=== PATIENT | male | born 1940 | race Caucasian/White ===

== ENCOUNTER 2016-09-26 09:41 | Inpatient (IN) | payer OTHER ==
--- NOTE | 2016-09-24 17:35 | GHP ---
[f rep st] HISTORY AND PHYSICAL DATE OF ADMISSION: 09/26/2016 HISTORY OF PRESENT ILLNESS: The patient is referred from Dr. Shi for evaluation of right groin painful mass. The patient is a 75-year-old male, who has a history of open left inguinal hernia repa ir and he is having an enlarging bothersome mass on his right inguinal region. PAST SURGICAL HISTORY: Includes open left inguinal hernia repair. PAST MEDICAL HISTORY: He has diabetes, mild asthma, dementia, depression. MEDICATIONS: Stool softeners and fluticasone. REVIEW OF SYSTEMS: Negative 10 point review of systems. PHYSICAL EXAM: GENERAL: Patient is a 75-year-old male, in no apparent distress. HEAD AND NECK: No rmocephalic, atraumatic. CHEST: CTA bilaterally. HEART: Regular rate. ABDOMEN: There is a non r educible right groin mass as well as illuminating scrotal mass. EXTREMITIES: No lower extremity cyndi ma. IMPRESSION: A 75-year-old male with right inguinal hernia and likely hydrocele. RECOMMENDATION: Open right inguinal hernia repair and hydrocele repair with mesh. Risks including r ecurrence, infection, nerve injury, scrotal swelling, was discussed the patient in detail. The patie nt elects to proceed with scheduling for September 26, 2016. The patient will most likely need observat ion status due to his dementia and he has no home care. /[id number]/MODL
[~2016-09-26 09:41] MED LIST: BUPIVACAINE 0.5% 30 ML SDV ONE; DEXAMETHASONE 4 MG/ML VIAL ONE; LIDOCAINE 2% 100 MG/5 ML SYR IVP ONE; ONDANSETRON 4 MG/2 ML VIAL ONE; PROPOFOL 200 MG/20 ML VIAL ONE; SKIN ADHESIVE (DERMABOND) 1 EACH TP ONE; ceFAZolin 2 GM/DEXTROSE 100 ML IV ONE; fentaNYL 100 MCG/2 ML INJ ONE
[2016-09-26] MEDS ORDERED: CEFAZOLIN 2 GM/DEXTROSE/100 ML BAG IV ONE (10:20)
[2016-09-26] MEDS ORDERED: LIDOCAINE 1% 5 ML SDV ONE (10:20)
--- NOTE | 2016-09-26 10:55 | CPEKG ---
Heart Rate: 77 RR Interval: 779 P-R Interval: 184 QRSD Interval: 86 QT Interval: 388 QTC Interval: 440 P [place]: 67 QRS [place]: 39 T Wave [place]: 67 EKG Severity - NORMAL ECG - EKG Impression: SINUS RHYTHM Electronically Signed By: Kelby Rodriguez 26-Sep-2016 12:48:58
[2016-09-26] MEDS ORDERED: ROCURONIUM 50 MG/5 ML VIAL ONE (11:01)
[2016-09-26] MEDS ORDERED: SUGAMMADEX SODIUM 200 MG/2 ML VIAL IVP ONE (12:14)
[2016-09-26] MEDS ORDERED: ACETAMINOPHEN 325 MG TAB PO PRN (12:47)
[2016-09-26] MEDS ORDERED: HYDROCODONE/APAP 5/325 TAB PO PRN (12:47)
--- NOTE | 2016-09-26 12:52 | POSTOPPROG ---
Post Op Note Date of Operation: 09/26/16 Surgeon: Osei hPillips Sole Leveling Machine Operator: Flaquito Weiner Anesthesiologist: Dr Le Anesthesia: GET(General Endotracheal) Pre-op Diagnosis: right inguinal hernia Post-op Diagnosis: large right inguinal hernia Indication: pain Procedure: open r inguinal hernia repair with mesh Findings: large hernia Inf/Abcess present in the surg proc area at time of surgery?: No Depth: Deep Incisional (Fascial) EBL: Minimal Drains: Desean Cho
[2016-09-26] MEDS ORDERED: D5W 1/2 NS W/ 20 KCl/L 1,000 ML IV SCH (13:00)
[2016-09-26] MEDS: HYDROmorphONE/DILAUDID 1 MG/ML SYR IVP PRN ×2 (14:47→23:27)
[2016-09-26] MEDS ORDERED: LORazepam 2 MG/ML INJ IV ONE (19:30)
[2016-09-26] MEDS ORDERED: LORazepam 2 MG/ML INJ IVP PRN (19:40)
[2016-09-26] MEDS ORDERED: LORazepam 2 MG/ML INJ ONE (20:12)
[2016-09-26] MEDS ORDERED: HALOPERIDOL LACT 5 MG/ML INJ IM PRN (20:17)
[2016-09-26] MEDS ORDERED: LORazepam 2 MG/ML INJ IM ONE (21:00)
--- NOTE | 2016-09-27 06:23 | SOAPPROG ---
SOAP Progress Note Assessment/Plan: Assessment: draft note, will see pt this AM 75yo male s/p open right inguinal hernia repair. POD 1. Dementia, Diabetes. was agitated last evening, pulled out IV line. Doing much better today per nursing. PE slightly confused Abdomen right lower quadrant bandage dry, TRUE drain in place, abdomen soft, nondistended. Plan: Ativan IM and haldol ordered if agitation worsens today. May need medicine consult to assist in care but will see how day progresses. will need SNF as remarkably patient lived alone prior to this admission and will not be able to care for himself. Case management already aware. Family (nieces) aware, discussed last evening. 09/27/16 06:19 09/27/16 21:56 Objective: Vital Signs Temp Pulse Resp BP Pulse Ox 36.7 C 70 16 102/65 96 09/27/16 04:00 09/27/16 04:00 09/27/16 04:00 09/27/16 04:00 09/27/16 04:00 09/26/16 09/27/16 09/28/16 05:59 05:59 05:59 Intake Total 1215 Output Total 200 Balance 1015 ICD10 Worksheet Patient Problems: Problems Problem Status Diagnosed Hernia Acute - ICD10 Problem Qualifiers (1) Hernia
--- NOTE | 2016-09-28 06:01 | SOAPPROG ---
SOAP Progress Note Assessment/Plan: Assessment: draft note, will see pt this AM 75yo male s/p open right inguinal hernia repair. POD 1. Dementia, Diabetes. was agitated last evening, pulled out IV line. Doing much better today per nursing. PE slightly confused Abdomen right lower quadrant bandage dry, TRUE drain in place, abdomen soft, nondistended. Plan: Ativan IM and haldol ordered if agitation worsens today. May need medicine consult to assist in care but will see how day progresses. will need SNF as remarkably patient lived alone prior to this admission and will not be able to care for himself. Case management already aware. Family (nieces) aware, discussed last evening. 09/27/16 06:19 09/27/16 21:56 09/28/16 05:59 less confused, tolerating diet, tolerating pain. PE slightly confused but oriented to person, place appears comfortable abdomen right lower quadrant bandage dry, TRUE in place (165 out yesterday) abdomen is soft, no signs of tenderness to palpation Plan will need to stay given size of hernia resulting in significant pain, plus confusion while improving patient not safe to care for himself. 09/28/16 09:47 Objective: Vital Signs Temp Pulse Resp BP Pulse Ox 36.6 C 92 14 120/69 93 09/28/16 04:00 09/28/16 04:00 09/28/16 04:00 09/28/16 04:00 09/28/16 04:00 09/26/16 09/27/16 09/28/16 05:59 05:59 05:59 Intake Total 1215 Output Total 200 145 Balance 1015 -145 ICD10 Worksheet Patient Problems: Problems Problem Status Diagnosed Hernia Acute - ICD10 Problem Qualifiers (1) Hernia
[2016-09-28] MEDS: ENOXAPARIN 40 MG/0.4 ML SYR SC SCH (16:21)
--- NOTE | 2016-09-28 17:27 | GOP ---
[f rep st] OPERATIVE REPORT DATE OF OPERATION: 09/26/2016 SURGEON: Osei Phillips MD PREOPERATIVE DIAGNOSIS: Right inguinal hernia and possible hydrocele. POSTOPERATIVE DIAGNOSIS: Incarcerated, sliding right inguinal hernia. PROCEDURE PERFORMED: Open repair incarcerated, sliding right inguinal hernia ASST: RHONDA Weiner FINDINGS: Patient was found to have a large incarcerated, sliding right inguinal hernia containing a portion of the colon and the appendix, which were quite viable. DESCRIPTION OF PROCEDURE: Patient taken to the operating room, where he received satisfactory general endotracheal anesthesia by Dr. Le. He was placed in the supine position, and prepped and draped in the usual sterile fashion. An oblique incision was made in the right midline. Dissection was carried down through the subcutaneous tissue. Hemostasis was obtained with electrocautery and 3-0 Vicryl ties. External oblique was opened. A large hernia sac extending down into the scrotum was dissected free from the scrotal structures. The cord was mobilized and encircled with a vessel loop and the sac was dissected free from the layers of the scrotum until eventually the contents were partially reduced. The sac was completely freed up. It was then opened and evaluated. The sliding component was present. This was freed up until the right colon and appendix could be reduced. The sac was then multiply ligated with 2-0 Vicryl ligatures. Excess sac was amputated and the stump was seen to retract below the internal ring. The floor of the canal was further imbricated with running 2 -0 Vicryl suture and a ProGrip polyester mesh Covidien patch was placed over the inguinal floor. The patch was slit laterally to pass the limb around the cord structures. It was then anchored in place with interrupted 0 Surgilon sutures, securing it to the internal oblique fascia, Tim's ligament, and the shelving edge of the inguinal ligament. Cord and nerve were replaced in anatomic position. The external oblique was closed with a running 2-0 Vicryl, subcu with 3-0 Vicryl , and the skin with skin taurus. He tolerated the procedure quite well, was taken to recovery room in good condition. There were no complications. /[id number]/MODL MTDD
--- NOTE | 2016-09-29 09:26 | SOAPPROG ---
SOAP Progress Note Assessment/Plan: Assessment: draft note, will see pt this AM 75yo male s/p open right inguinal hernia repair. POD 1. Dementia, Diabetes. was agitated last evening, pulled out IV line. Doing much better today per nursing. PE slightly confused Abdomen right lower quadrant bandage dry, TRUE drain in place, abdomen soft, nondistended. Plan: Ativan IM and haldol ordered if agitation worsens today. May need medicine consult to assist in care but will see how day progresses. will need SNF as remarkably patient lived alone prior to this admission and will not be able to care for himself. Case management already aware. Family (nieces) aware, discussed last evening. 09/27/16 06:19 09/27/16 21:56 09/28/16 05:59 less confused, tolerating diet, tolerating pain. PE slightly confused but oriented to person, place appears comfortable abdomen right lower quadrant bandage dry, TRUE in place (165 out yesterday) abdomen is soft, no signs of tenderness to palpation Plan will need to stay given size of hernia resulting in significant pain, plus confusion while improving patient not safe to care for himself. 09/28/16 09:47 09/29/16 09:[address] Phillips PE abdomen TRUE in place, soft, bandage dry Plan D/C to SNF/rehab if placement available Objective: Vital Signs Temp Pulse Resp BP Pulse Ox 37.0 C 95 16 93/59 L 92 09/29/16 08:00 09/29/16 08:00 09/29/16 08:00 09/29/16 08:00 09/29/16 08:00 09/28/16 09/29/16 09/30/16 05:59 05:59 05:59 Output Total 145 55 Balance -145 -55 ICD10 Worksheet Patient Problems: Problems Problem Status Diagnosed Hernia Acute - ICD10 Problem Qualifiers (1) Hernia
--- NOTE | 2016-09-29 09:30 | PDIAF ---
- Diagnosis Diagnosis: s/p hernia surgery Code Status: Full Code - Medication Management Discharge Medications: Medications to Continue on Transfer Fluticasone Nasal [Flonase Nasal [place]] 2 sprays [place] DAILY PRN 11/06/11 [ Last Taken 09/26/16 09:00] Discharge Medications: Refer to the Discharge Home Medication list for PRN reason. - Orders Services needed: Registered Nurse, Physical Therapy, Occupational Therapy Diet Recommendation: no restrictions on diet Diet Texture: Regular Texture Diet Wound Care Instructions: ok to shower/bath over taurus, no need to cover taurus with bandage Sutures/Taurus Site: around Oct 10-, can be done in rehab or at Dr Phillips office - Follow Up Care Current Providers and Referrals: Raza Shi MD [Primary Care Provider] -
[2016-09-29] MEDS: ENOXAPARIN 40 MG/0.4 ML SYR SC SCH (10:01)
--- NOTE | 2016-09-29 12:32 | SOAPPROG ---
SOAP Progress Note Assessment/Plan: Assessment: draft note, will see pt this AM 75yo male s/p open right inguinal hernia repair. POD 1. Dementia, Diabetes. was agitated last evening, pulled out IV line. Doing much better today per nursing. PE slightly confused Abdomen right lower quadrant bandage dry, TRUE drain in place, abdomen soft, nondistended. Plan: Ativan IM and haldol ordered if agitation worsens today. May need medicine consult to assist in care but will see how day progresses. will need SNF as remarkably patient lived alone prior to this admission and will not be able to care for himself. Case management already aware. Family (nieces) aware, discussed last evening. 09/27/16 06:19 09/27/16 21:56 09/28/16 05:59 less confused, tolerating diet, tolerating pain. PE slightly confused but oriented to person, place appears comfortable abdomen right lower quadrant bandage dry, TRUE in place (165 out yesterday) abdomen is soft, no signs of tenderness to palpation Plan will need to stay given size of hernia resulting in significant pain, plus confusion while improving patient not safe to care for himself. 09/28/16 09:47 09/29/16 09:[address] Phillips PE abdomen TRUE in place, soft, bandage dry Plan D/C to SNF/rehab if placement available 09/29/16 12:32 await one more day for placement given pain control issues. Objective: Vital Signs Temp Pulse Resp BP Pulse Ox 36.8 C 88 18 116/65 94 09/29/16 12:00 09/29/16 12:00 09/29/16 12:00 09/29/16 12:00 09/29/16 12:00 09/28/16 09/29/16 09/30/16 05:59 05:59 05:59 Output Total 145 55 Balance -145 -55 ICD10 Worksheet Patient Problems: Problems Problem Status Diagnosed Hernia Acute - ICD10 Problem Qualifiers (1) Hernia
[2016-09-30 02:45] VITALS: RESP 18
[2016-09-30] MEDS: ENOXAPARIN 40 MG/0.4 ML SYR SC SCH (08:55)
[2016-09-30 12:12] VITALS: BP 99/62; PULSE 94; TEMP 99.2; O2SAT 91
--- NOTE | 2016-09-30 13:48 | SOAPPROG ---
SOAP Progress Note Assessment/Plan: Assessment/Plan: 75 Y M s/p open incarcerated hernia repair. TRUE removed. Wound cdi. No erythema. Pain controlled. D/c to SNF today. 09/30/16 13:45 Subjective: Denies pain today. Isn't walking well on his own bc "it's hard." On interrogation he endorses weakness and some pain. Eating but low appetite. Objective: Vital Signs Temp Pulse Resp BP Pulse Ox 37.3 C 94 18 99/62 L 91 L 09/30/16 12:05 09/30/16 12:05 09/30/16 12:05 09/30/16 12:05 09/30/16 12:05 09/29/16 09/30/16 10/01/16 05:59 05:59 05:59 Intake Total 225 Output Total 55 Balance -55 225 alert, hesitant to cooperate with exam mmm, kera complexion no wob rrr abd soft. inc cdi. drain site clean. has taurus. gen minimal, but present, scrotal swelling ICD10 Worksheet Patient Problems: Problems Problem Status Diagnosed Hernia Acute
--- NOTE | 2016-09-30 14:17 | PDIAF ---
- Diagnosis Diagnosis: s/p hernia surgery Code Status: Full Code - Medication Management Discharge Medications: Medications to Continue on Transfer Fluticasone Nasal [Flonase Nasal [place]] 2 sprays [place] DAILY PRN 11/06/11 [ Last Taken 09/26/16 09:00] Acetaminophen [Tylenol 325mg (*)] 325 - 650 mg PO Q4HRS PRN #0 tab 09/29/16 [ Last Taken Unknown] Discharge Medications: Refer to the Discharge Home Medication list for PRN reason. PICC Care - Routine: N/A - Orders Services needed: Registered Nurse, Physical Therapy, Occupational Therapy Diet Recommendation: no restrictions on diet Diet Texture: Regular Texture Diet Wound Care Instructions: ok to shower/bath over taurus, no need to cover taurus with bandage Sutures/Taurus Site: around Oct 10-, can be done in rehab or at Dr Phillips office - Follow Up Care Current Providers and Referrals: Raza Shi MD [Primary Care Provider] - Osei Phillips MD [Medical Doctor] - (10-14 days)
--- NOTE | 2016-09-30 15:49 | GDS ---
[f rep st] DISCHARGE SUMMARY DISCHARGE DIAGNOSIS: Incarcerated sliding right inguinal hernia. OTHER DIAGNOSES: Diabetes, dementia, asthma, depression, and history of left inguinal hernia repair. PROCEDURES: Open repair of incarcerated sliding right inguinal hernia with mesh by Dr. Osei Phillips. INTRAOPERATIVE FINDINGS: The patient was found to have a large incarcerated sliding right inguinal hernia containing a portion of the colon and the appendix , which were viable. HOSPITAL COURSE: The patient is a 75-year-old male, who was referred to us by his primary care physician for evaluation of an increasingly painful right groin mass. He was found to have an incarcerated hernia. He was brought to the operating room and underwent hernia repair. He did have colon and appendix involved in his hernia sac, and these were viable. He did not require any resection. A mesh was placed, and a Desean-Cho drain was placed as well. The patient's postoperative course was mildly complicated by some increased confusion, as well as some pain control issues. His confusion did improve but did not entirely go away, which appears to be his baseline upon speaking to relatives. His pain improved as well, and he did not require pain medicines during the last 2 days of his hospital stay. Case management was consulted and his family was aware of his situation. DISCHARGE INSTRUCTIONS: Ultimately, he was discharged to a subacute nursing facility in stable condition. He was given instructions to follow up with us in 2 weeks for removal of the taurus and routine follow-up care. His Desean- Cho drain was removed prior to him leaving the hospital. There was some discussion about eventually arranging long-term care, as the patient was living independently but perhaps not safely. /[id number]/MODL MTDD
== END 2016-09-30 16:00 | DRG 352 ==
LOC: F3N 09:41 → F3E 13:47 → OBSVTOIN 09-27 06:19
PROVIDERS: ADMIT Surgery; ATTEND Surgery
PROC: 0YU50JZ Supplement Right Inguinal Region with Synthetic Substitute, Open Approach (ICD-10-PCS; principal; 2016-09-26 11:00)
DX: K40.30 Unilateral inguinal hernia, with obstruction, without gangrene, not specified as recurrent (principal); R41.0 Disorientation, unspecified; E11.9 Type 2 diabetes mellitus without complications; J45.909 Unspecified asthma, uncomplicated; F03.90 Unspecified dementia, unspecified severity, without behavioral disturbance, psychotic disturbance, mood disturbance, and anxiety; F32.9 Major depressive disorder, single episode, unspecified
CPT/HCPCS: 97161-GP; 97165-GO; 97530-GP; 97535-GO; C1781; G8978-GP-CJ; G8979-GP-CI; G8987-GO-CI; G8988-GO-CI; J0690; J1100; J1170; J1650; J2001; J2405; J2704; J3010

== ENCOUNTER 2016-10-02 12:49 | Emergency (ER) | payer OTHER ==
[2016-10-02 13:12] VITALS: TEMP 98.1
[2016-10-02 14:02] LABS: % IMMATURE GRANULYOCYTES 0.2 % (0.0-1.1); ABSOLUTE IMMATURE GRANULOCYTES 0.02 10^3/uL (0.00-0.10); ADD DIFF? NO; ADD MORPH? NO; ADD SCAN? NO; ATYPICAL LYMPHOCYTE FLAG 0 (0-99); FRAGMENT RBC FLAG 0 (0-99); HEMATOCRIT 34.5 % (40.0-51.0); LEFT SHIFT FLG 0 (0-99); LIPEMIA HEMOLYSIS FLAG 90 (0-99); MEAN CELL HEMOGLOBIN 32.6 pg (27.9-34.1); MEAN CELL HEMOGLOBIN CONCENTR. 34.8 g/dL (32.4-36.7); MEAN CELL VOLUME 93.8 fL (81.5-99.8); MEAN PLATELET VOLUME 8.6 fL (8.7-11.7); PLATELET CLUMPS FLAG 0 (0-99); PLATELET COUNT 261 10^3/uL (150-400); RED BLOOD CELL COUNT 3.68 10^6/uL (4.40-6.38); RED CELL DISTRIBUTION WIDTH 13.9 % (11.5-15.2)
--- NOTE | 2016-10-02 14:16 | EDPHY ---
H & P Time Seen by Provider: 10/02/16 14:16 HPI/ROS: CHIEF COMPLAINT: Suicidal ideation by detention report HISTORY OF PRESENT ILLNESS: Patient arrives on a mental health hold from [facility] stating that he was depressed and admits suicidal statements. In the emergency department the patient tells me I would never kill myself and I do not think I could when asked if he would hurt himself. Patient is a history dementia and further history surrounding the events of his arrival to the emergency department are unobtainable because of his dementia. He does not have any acute medical complaints. REVIEW OF SYSTEMS: Eye: no change in vision ENT: no sore throat Cardiac: no chest pain or syncope Pulmonary: no cough or SOB Abdomen: no vomiting, diarrhea, abdominal pain Musculoskeletal: no back pain Neuro: no headache A comprehensive 10 point review of systems is otherwise negative aside from elements mentioned in the history of present illness. Limited by patient's dementia. PAST MEDICAL HISTORY: Includes depression, diabetes, asthma, dementia. H&P dated 10/06/2016 personally reviewed by myself. Social history: [facility] resident, nonsmoker currently. No alcohol. General Appearance: Alert and conversant, cooperative. Eyes: No scleral icterus. ENT, Mouth: Normal mucous membranes. Respiratory: Normal respiratory effort, breath sounds equal, lungs are clear to auscultation. Cardiovascular: Regular rate and rhythm. Gastrointestinal: Abdomen is soft and non tender. Neurological: Alert, but thinks he is in [place] and believes it is 1974. Normally conversant. Face symmetric, normal movement and sensation in all extremities. Skin: Multiple superficial skin tears some with Steri-Strips none of which appear infected or have cellulitis. Musculoskeletal: No extremity deformity or bony tenderness. No cervical spine tenderness. Neck is supple. Psychiatric: Not agitated. Emergency Department course/MDM: Patient arrives on a mental health hold but it has been vacated by myself at 2:30 p.m. as I do not think he appears to be a danger to himself at this time. Mental health evaluation requested and after evaluation, concurs; Simone and Dr. Olivera recommend discharge and vacating the mental health hold. Smoking Status: Never smoked Constitutional: Initial Vital Signs Temperature (C) 36.7 C 10/02/16 13:03 Heart Rate 100 10/02/16 13:03 Respiratory Rate 18 10/02/16 13:03 Blood Pressure 104/63 10/02/16 13:03 O2 Sat (%) 96 10/02/16 13:03 O2 Delivery Mode Room Air Allergies/Adverse Reactions: No Known Allergies Allergy (Verified 09/25/16 12:06) Home Medications: Medication Instructions Recorded Fluticasone Nasal [Flonase Nasal 2 sprays [place] DAILY PRN 11/06/11 [place]] Acetaminophen [Tylenol 325mg (*)] 325 - 650 mg PO Q4HRS PRN #0 tab 09/29/16 Medical Decision Making Differential Diagnosis: Differential diagnosis considered for depression including functional and major depression, situational depression, medication side effect, drugs and alcohol abuse. - Data Points Laboratory Results: Laboratory Results 10/02/16 13:54 10/02/16 13:54 10/02/16 13:54 WBC 8.08 10^3/uL (3.80-9.50) RBC 3.68 L 10^6/uL (4.40-6.38) Hgb 12.0 L g/dL (13.7-17.5) Hct 34.5 L % (40.0-51.0) MCV 93.8 fL (81.5-99.8) MCH 32.6 pg (27.9-34.1) MCHC 34.8 g/dL (32.4-36.7) RDW 13.9 % (11.5-15.2) Plt Count 261 10^3/uL (150-400) MPV 8.6 L fL (8.7-11.7) Neut % (Auto) 68.7 % (39.3-74.2) Lymph % (Auto) 19.1 % (15.0-45.0) [place] % (Auto) 8.5 % (4.5-13.0) Eos % (Auto) 2.6 % (0.6-7.6) Baso % (Auto) 0.9 % (0.3-1.7) Nucleat RBC Rel Count 0.0 % (0.0-0.2) Absolute Neuts (auto) 5.55 10^3/uL (1.70-6.50) Absolute Lymphs (auto) 1.54 10^3/uL (1.00-3.00) Absolute Monos (auto) 0.69 10^3/uL (0.30-0.80) Absolute Eos (auto) 0.21 10^3/uL (0.03-0.40) Absolute Basos (auto) 0.07 10^3/uL (0.02-0.10) Absolute Nucleated RBC 0.00 10^3/uL (0-0.01) Immature Gran % 0.2 % (0.0-1.1) Immature Gran # 0.02 10^3/uL (0.00-0.10) Sodium 140 mEq/L (134-144) Potassium 4.1 mEq/L (3.5-5.2) Chloride 105 mEq/L (97-110) Carbon Dioxide 26 mEq/l (22-31) Anion Gap 9 mEq/L (8-16) BUN 30 H mg/dL (7-23) Creatinine 1.1 mg/dL (0.7-1.3) Estimated GFR > 60 Glucose 94 mg/dL (70-100) Calcium 8.3 L mg/dL (8.5-10.4) Ethyl Alcohol < 10 mg/dL (0-10) Departure - Departure Disposition: Home, Routine, Self-Care Clinical Impression: Depression Qualifiers: Depression Type: unspecified Qualifier Code: (F32.9) Major depressive disorder , single episode, unspecified Dementia Qualifiers: Dementia type: unspecified type Dementia behavioral disturbance: without behavioral disturbance Qualifier Code: (F03.90) Unspecified dementia without behavioral disturbance Condition: Good Instructions: Depression (ED) Referrals: Patient,NotPresent [Unknown] - As per Instructions Raza Shi MD [Primary Care Provider] - As per Instructions
[2016-10-02 14:23] LABS: ANION GAP 9 mEq/L (8-16); CALCIUM 8.3 mg/dL (8.5-10.4); CARBON DIOXIDE 26 mEq/l (22-31); CHLORIDE 105 mEq/L (97-110); CREATININE 1.1 mg/dL (0.7-1.3); ETHANOL SERUM < 10 mg/dL (0-10); GLOMERULAR FILTRATION RATE > 60; GLUCOSE 94 mg/dL (70-100); POTASSIUM 4.1 mEq/L (3.5-5.2); SODIUM 140 mEq/L (134-144)
[2016-10-02 14:56] VITALS: BP 109/71; PULSE 84; RESP 16; O2SAT 93
== END 2016-10-02 16:08 | disposition home or self-care (01) ==
LOC: EDUNIT#
DX: F32.9 Major depressive disorder, single episode, unspecified (principal); F03.90 Unspecified dementia, unspecified severity, without behavioral disturbance, psychotic disturbance, mood disturbance, and anxiety; E11.9 Type 2 diabetes mellitus without complications; J45.909 Unspecified asthma, uncomplicated
CPT/HCPCS: G0480

== ENCOUNTER 2016-10-23 15:18 | Inpatient (IN) | payer OTHER ==
[2016-10-23] MEDS ORDERED: NS 1,000 ML IV ONE (15:37)
[2016-10-23 15:38] LABS: % IMMATURE GRANULYOCYTES 0.5 % (0.0-1.1); ABSOLUTE IMMATURE GRANULOCYTES 0.07 10^3/uL (0.00-0.10); ADD DIFF? NO; ADD MORPH? NO; ADD SCAN? NO; ATYPICAL LYMPHOCYTE FLAG 0 (0-99); FRAGMENT RBC FLAG 0 (0-99); HEMOGLOBIN 15.6 g/dL (13.7-17.5); LEFT SHIFT FLG 10 (0-99); LIPEMIA HEMOLYSIS FLAG 80 (0-99); MEAN CELL HEMOGLOBIN 31.6 pg (27.9-34.1); MEAN CELL HEMOGLOBIN CONCENTR. 33.2 g/dL (32.4-36.7); MEAN CELL VOLUME 95.3 fL (81.5-99.8); PLATELET CLUMPS FLAG 0 (0-99); PLATELET COUNT 339 10^3/uL (150-400); RED BLOOD CELL COUNT 4.93 10^6/uL (4.40-6.38); RED CELL DISTRIBUTION WIDTH 14.4 % (11.5-15.2)
--- NOTE | 2016-10-23 15:41 | CPEKG ---
Heart Rate: 110 RR Interval: 545 P-R Interval: 168 QRSD Interval: 76 QT Interval: 332 QTC Interval: 450 P [place]: 57 QRS [place]: 19 T Wave [place]: 51 EKG Severity - OTHERWISE NORMAL ECG - EKG Impression: SINUS TACHYCARDIA Electronically Signed By: Lakhwinder Cintron 23-Oct-2016 16:40:39
--- NOTE | 2016-10-23 15:43 | EDPHY ---
H & P Stated Complaint: FTT Time Seen by Provider: 10/23/16 15:37 HPI/ROS: CHIEF COMPLAINT: Failure to thrive HISTORY OF PRESENT ILLNESS: The patient has a history of dementia and recent hospitalization for an incarcerated right inguinal hernia. The patient is brought to the ED today by paramedics with a chief complaint of failure to thrive. The patient himself denies acute complaints but does report that he is in chronic pain. He has chronically poor appetite. The patient denies recent fall or trauma. The patient has had some chronic abdominal pain since his surgery. The patient was found in his home disheveled by police officers. He was wearing a diaper that had not been changed days. REVIEW OF SYSTEMS: A comprehensive 10 point review of systems is otherwise negative aside from elements mentioned in the history of present illness. Source: Patient - Personal History Current Tetanus Diphtheria and Acellular Pertussis (TDAP): Unsure - Medical/Surgical History Hx Asthma: No Hx Chronic Respiratory Disease: No Hx Diabetes: No Hx Cardiac Disease: No Hx Renal Disease: No Hx Cirrhosis: No Hx Alcoholism: No Hx HIV/AIDS: No Hx Splenectomy or Spleen Trauma: No Other PMH: dementia, insomnia, HERNIA REPAIR, DEPRESSION,DM - Social History Smoking Status: Never smoked - Physical Exam Exam: General Appearance: Elderly male, kyphotic, no acute distress Eyes: Pupils equal and round no pallor or injection ENT, Mouth: Dry mucous membranes Respiratory: There are no retractions, lungs are clear to auscultation Cardiovascular: Regular rate and rhythm Gastrointestinal: Surgical incision clean dry intact Neurological: Alert and oriented x1, moves all 4 extremities with 5/5 strength Skin: Warm and dry, no rashes Musculoskeletal: Neck is supple nontender Extremities: symmetrical, full range of motion Psychiatric: Flat affect, does report depression Constitutional: Initial Vital Signs Temperature (C) 36.3 C 10/23/16 15:20 Heart Rate 114 H 10/23/16 15:20 Respiratory Rate 16 10/23/16 15:20 Blood Pressure 98/68 L 10/23/16 15:20 O2 Sat (%) 94 10/23/16 15:20 O2 Delivery Mode Room Air O2 (L/minute) 4 Allergies/Adverse Reactions: No Known Allergies Allergy (Verified 09/25/16 12:06) Home Medications: Medication Instructions Recorded Fluticasone Nasal [Flonase Nasal 2 sprays EACHNARE DAILY PRN 11/06/11 [place]] Acetaminophen [Tylenol 325mg (*)] 325 - 650 mg PO Q4HRS PRN #0 tab 09/29/16 Medical Decision Making - Diagnostics EKG Interpretation: EKG: Complete interpretation has been separately recorded in the [facility] archive. Summary impression: Sinus tachycardia, rate 110 ED Course/Re-evaluation: The patient presents to the ED with failure to thrive. Family members have arrived in additional information has been obtained. The patient reportedly has had markedly worsening weakness over the past 5 days. [facility] and was discharged home. There is some question of whether the patient was competent to make this decision. Patient was seen by case management here in the emergency department. At this point time they do feel the patient needs to be admitted for an ethics evaluation and consideration of placement secondary to lack of competency. The patient has had screening laboratory studies in the ED which demonstrate evidence of dehydration with a markedly elevated BUN of 49. Total CPK currently pending. Urinalysis has been ordered and is pending. Follow up on urinalysis deferred to hospitalist service. The patient is hemodynamically stable. He is in no acute distress. CPK is less than 20. Consultation was made with Dr. Adams from the hospitalist service. The patient will be admitted to the hospital for further care The patient will be admitted to the hospitalist service this evening. Differential Diagnosis: Differential diagnosis considered includes dehydration, metabolic abnormality, renal failure, urinary tract infection, progressive dementia, rhabdomyolysis - Data Points Laboratory Results: Laboratory Results 10/23/16 15:19 10/23/16 15:19 10/23/16 15:19 WBC 14.46 H 10^3/uL (3.80-9.50) RBC 4.93 10^6/uL (4.40-6.38) Hgb 15.6 g/dL (13.7-17.5) Hct 47.0 % (40.0-51.0) MCV 95.3 fL (81.5-99.8) MCH 31.6 pg (27.9-34.1) MCHC 33.2 g/dL (32.4-36.7) RDW 14.4 % (11.5-15.2) Plt Count 339 10^3/uL (150-400) MPV 9.0 fL (8.7-11.7) Neut % (Auto) 87.2 H % (39.3-74.2) Lymph % (Auto) 5.9 L % (15.0-45.0) [place] % (Auto) 5.9 % (4.5-13.0) Eos % (Auto) 0.3 L % (0.6-7.6) Baso % (Auto) 0.2 L % (0.3-1.7) Nucleat RBC Rel Count 0.0 % (0.0-0.2) Absolute Neuts (auto) 12.60 H 10^3/uL (1.70-6.50) Absolute Lymphs (auto) 0.86 L 10^3/uL (1.00-3.00) Absolute Monos (auto) 0.85 H 10^3/uL (0.30-0.80) Absolute Eos (auto) 0.05 10^3/uL (0.03-0.40) Absolute Basos (auto) 0.03 10^3/uL (0.02-0.10) Absolute Nucleated RBC 0.00 10^3/uL (0-0.01) Immature Gran % 0.5 % (0.0-1.1) Immature Gran # 0.07 10^3/uL (0.00-0.10) Sodium 144 mEq/L (134-144) Potassium 4.7 mEq/L (3.5-5.2) Chloride 105 mEq/L (97-110) Carbon Dioxide 26 mEq/l (22-31) Anion Gap 13 mEq/L (8-16) BUN 49 H mg/dL (7-23) Creatinine 0.9 mg/dL (0.7-1.3) Estimated GFR > 60 Glucose 89 mg/dL (70-100) Calcium 9.1 mg/dL (8.5-10.4) Creatine Kinase < 20 IU/L (0-224) Medications Given: Discontinued Medications Sodium Chloride (Ns) 1,000 mls @ 0 mls/hr IV ONCE ONE PRN Reason: Wide Open Stop: 10/23/16 15:38 Last Admin: 10/23/16 15:51 Dose: 1,000 mls Departure - Departure Disposition: [facility] Inpatient Acute Clinical Impression: Dementia, Dehydration, Tachycardia Condition: Fair
[2016-10-23 15:52] LABS: ANION GAP 13 mEq/L (8-16); CALCIUM 9.1 mg/dL (8.5-10.4); CARBON DIOXIDE 26 mEq/l (22-31); CHLORIDE 105 mEq/L (97-110); CREATININE 0.9 mg/dL (0.7-1.3); GLOMERULAR FILTRATION RATE > 60; GLUCOSE 89 mg/dL (70-100); POTASSIUM 4.7 mEq/L (3.5-5.2); SODIUM 144 mEq/L (134-144)
[2016-10-23 16:56] LABS: COLOR AMBER; LEUKOCYTE ESTERASE,URINE 1+ (NEGATIVE); NITRITE,URINE NEGATIVE (NEGATIVE)
[2016-10-23 16:58] LABS: BACTERIA 4+ /hpf (NONE SEEN); MUCUS 2+ /lpf (NONE-1+); WBC,URINE 25-50 /hpf (0-3)
[2016-10-23] MEDS ORDERED: oxyCODONE IR 5 MG TAB PO PRN (18:00)
[2016-10-23] MEDS ORDERED: ACETAMINOPHEN 325 MG TAB PO PRN (18:00)
[2016-10-23] MEDS ORDERED: KETOROLAC 15 MG/1 ML SDV IVP PRN (18:00)
[2016-10-23] MEDS ORDERED: ONDANSETRON 4 MG/2 ML VIAL IVP PRN (18:00)
--- NOTE | 2016-10-23 18:39 | GHP ---
[f rep st] HISTORY AND PHYSICAL DATE OF ADMISSION: 10/23/2016 CHIEF COMPLAINT: Weakness. HISTORY: The patient is a 76-year-old male, who was admitted under Dr. Phillips approximately 2 weeks a go for a right inguinal hernia repair. He was discharged to [facility]. At some point he went home. It seems like family has been caring for him, but recently he has gotten increasingly more weak ove r the last 5 days. Reportedly he was found by paramedics very disheveled, covered in stool, wearing a diaper that had not been changed for days. Family states they were overwhelmed in terms of caring for him. The patient is a very poor historian. He complains of pain "everywhere." To me he told me he had lo w back pain which is chronic. He says he feels like he might cough. History is very poor, and canno t give any details regarding recent events in the home. PAST MEDICAL HISTORY: 1. Dementia. 2. Diabetes type 2. 3. Further past medical history unknown. MEDICATIONS: Please see computer record for a full detailed list. ALLERGIES: No known drug allergies. SOCIAL HISTORY: Unclear living situation, currently being cared for by some nieces who are not [employer] [facility] available. Unknown smoking and alcohol history. REVIEW OF SYSTEMS: Unobtainable due to patient's confusion. FAMILY HISTORY: Unobtainable due to patient's confusion. PHYSICAL EXAMINATION: GENERAL: This is an elderly male, frail, in no acute distress. VITAL SIGNS: Temperature is 36.3, pulse 114, blood pressure 116/81, saturating 88% on room air. HEENT: On eye e xamination, normal conjunctivae, pupils are equal and reactive to light. ENT, normal ears and nose, hearing intact. Normal lips and teeth. Oropharynx dry. NECK: Trachea midline, no thyromegaly. CH EST: Normal inspiratory effort. LUNGS: Clear to auscultation bilaterally. CARDIOVASCULAR: Regula r rate and rhythm, no murmur. No lower extremity edema. ABDOMEN: Soft, nontender. No hepatospleno megaly. SKIN: Warm and dry, intact, without rash. MUSCULOSKELETAL: No cyanosis or clubbing. Stre ngth 5/5 in upper extremities. NEUROLOGIC: Cranial nerves intact, normal sensation to light touch. PSYCH: He is alert and oriented x2, but poor historian, poor judgment, and poor memory. LABORATORY DATA: White count 14.46, hematocrit 47.0, platelets 339, sodium 144, potassium 4.7, chlor moris 105, bicarb 26, BUN 49, creatinine 0.9, glucose 89. Urinalysis shows 25 to 50 white blood cells, 4+ bacteria. IMAGING: EKG viewed by me, my personal interpretation is sinus tachycardia, no ST-T wave changes. The case was discussed with Dr. Cintron, emergency room physician. He was hoping to place the patient directly back to [facility] facility, however, this was not possible, and a urinalysis was stil l pending at the time of my discussion with him. ASSESSMENT AND PLAN: 1. Sepsis. I will check sepsis screen to rule out severe sepsis including a lactate. We will check a chest x-ray. At this point we do have a source of sepsis being urinary tract infection. We will start intravenous ceftriaxone pending culture. We will initiate intravenous fluid. 2. Metabolic encephalopathy. He is clearly confused, his baseline is unknown. There is an underlyi ng history of dementia. Further clarification with family is necessary. 3. Recent inguinal hernia repair, this appears to be stable. CODE STATUS: Code status remains full at this time because I do not feel the patient is currently de cisional to make any other choices. This needs clarification with family. ADMISSION STATUS: I will admit to inpatient as with his sepsis diagnosis I anticipate greater than 2 midnights will be required for stabilization. DVT PROPHYLAXIS: He is high risk, we will place on subcutaneous Lovenox. /[id number]/MODL
--- NOTE | 2016-10-23 18:47 | DX ---
PA and Lateral Chest 18:05 p.m. Indication: Suspected infection. Patient meets sepsis criteria. Comparison: Two-view chest dated November 13, 2011. Findings: Patient is rotated to the right altering the mediastinal silhouette. A large hiatal hernia filling the posterior mediastinum in the right lower hemithorax is obscured by mass-like consolidatio n and patchy groundglass airspace disease. A 1 cm nodule has developed in the left lung apex on the P A view. Left lung is otherwise clear with diffuse peribronchial thickening. Heart size upper normal. Impression: 1. Pneumonia versus mass in the right base partially obscures large hernia. 2. New left upper lobe pulmonary nodule versus superimposed chest wall structures. Recommendation: CT of the chest with IV contrast optimally characterize the right and left hemithorax .
[2016-10-23] MEDS ORDERED: IOPAMIDOL (ISOVUE 370) 100 ML BTL IV ONE (20:03)
[2016-10-23 20:33] LABS: BILIRUBIN,TOTAL 1.4 mg/dL (0.1-1.4); INR 1.19 (0.83-1.16); PROTIME(PATIENT) 15.1 SEC (12.0-15.0)
[2016-10-23 20:34] LABS: APTT 41.1 SEC (23.0-38.0)
[2016-10-23] MEDS: NS 1,000 ML IV SCH (20:54)
--- NOTE | 2016-10-23 21:27 | CT ---
CT Pulmonary Angiogram History: 76-year-old with hiatal hernia, recent inguinal hernia repair, pneumonia versus mass on brian st radiograph today. Technique: Axial contrast-enhanced images were obtained through the chest following the uneventful i ntravenous administration of 75 mL Isovue-370. Creatinine is 0.9. Multiplanar reformations were per formed through the pulmonary arteries. Dose reduction techniques were utilized. Comparison: PA and lateral chest October 23, 2016, CT abdomen and pelvis November 05, 2011. Findings: Visualization of segmental and subsegmental vessels is limited by respiratory motion, with no visible pulmonary embolus. There are patchy areas of consolidation and ground-glass opacity in t he right upper, middle, and lower lobes, with extensive mucous plugging, most prominent in the right middle and lower lobes. There is prominent right lower lobe atelectasis. Less prominent mucous plug ging and patchy consolidation is present in the lingula and left lower lobe. There is scattered bron chiectasis. A possible left upper lobe nodule on radiograph is related to hypertrophic change in the anterior left 1st rib. The ascending aorta is ectatic, measuring 3.7 cm, with mild atherosclerosis, without dissection. No pathologically enlarged lymph nodes are identified. Contiguous osteophytes in the thoracic spine are compatible with DISH. There is multilevel degenerative change in the spine , with moderate spinal canal narrowing at L1-L2. A large hiatal hernia is again noted, with the jon rity of the stomach in the mediastinum. A 4.9 cm diverticulum is noted in the proximal duodenum. Impressions 1. Limited visualization of pulmonary arteries, with no visible pulmonary embolus. 2. Patchy multifocal consolidation suggesting pneumonia. 3. Extensive mucous plugging, most prominent in the right lower lobe, which could be related to aspi ration, with prominent right lower lobe atelectasis. Follow-up CT is recommended in three months to document resolution. 4. Large hiatal hernia. 5. Hypertrophic left 1st rib change accounting for a pseudonodule on plain film. 6. Additional findings, as above. Findings discussed with Dr. Radha Adams on October 23, 2016 at 2109 hours. E:amm
[2016-10-23] MEDS: PIPERACILLIN/TAZO 4.5 GM/DEX 100 ML IV SCH (22:10)
[2016-10-24] MEDS: PIPERACILLIN/TAZO 4.5 GM/DEX 100 ML IV SCH (04:51)
[2016-10-24 05:33] LABS: % IMMATURE GRANULYOCYTES 0.4 % (0.0-1.1); ABSOLUTE IMMATURE GRANULOCYTES 0.05 10^3/uL (0.00-0.10); ADD DIFF? NO; ADD MORPH? NO; ADD SCAN? NO; ATYPICAL LYMPHOCYTE FLAG 0 (0-99); FRAGMENT RBC FLAG 0 (0-99); HEMATOCRIT 36.9 % (40.0-51.0); HEMOGLOBIN 12.3 g/dL (13.7-17.5); LEFT SHIFT FLG 0 (0-99); LIPEMIA HEMOLYSIS FLAG 80 (0-99); MEAN CELL HEMOGLOBIN 31.9 pg (27.9-34.1); MEAN CELL HEMOGLOBIN CONCENTR. 33.3 g/dL (32.4-36.7); MEAN CELL VOLUME 95.8 fL (81.5-99.8); MEAN PLATELET VOLUME 9.1 fL (8.7-11.7); PLATELET CLUMPS FLAG 0 (0-99); PLATELET COUNT 250 10^3/uL (150-400); RED BLOOD CELL COUNT 3.85 10^6/uL (4.40-6.38); RED CELL DISTRIBUTION WIDTH 14.6 % (11.5-15.2)
[2016-10-24 06:29] LABS: ALANINE AMINOTRANSFERASE 24 IU/L (21-72); ALBUMIN 2.3 g/dL (3.5-5.0); ALKALINE PHOSPHATASE 73 IU/L (38-126); ANION GAP 12 mEq/L (8-16); ASPARTATE AMINOTRANSFERASE 22 IU/L (17-59); BILIRUBIN,TOTAL 1.1 mg/dL (0.1-1.4); BILIRUBIN-CONJUGATED 0.8 mg/dL (0.0-0.5); BILIRUBIN-UNCONJUGATED 0.3 mg/dL (0.0-1.1); CALCIUM 8.1 mg/dL (8.5-10.4); CARBON DIOXIDE 20 mEq/l (22-31); CHLORIDE 113 mEq/L (97-110); CREATININE 0.9 mg/dL (0.7-1.3); GLOMERULAR FILTRATION RATE > 60; GLUCOSE 100 mg/dL (70-100); MAGNESIUM 2.3 mg/dL (1.6-2.3); POTASSIUM 4.2 mEq/L (3.5-5.2); SODIUM 145 mEq/L (134-144); TOTAL PROTEIN 5.7 g/dL (6.3-8.2)
--- NOTE | 2016-10-24 09:16 | WOCRNPDOC ---
WOCRN Advanced Assessment Note - Skin Integrity Problem, Advanced Assess Coccyx Pressure Injury Dressing Type: Allevyn Life Dressing Description: Clean/Dry, Intact Exudate Amount: None Exudate Characteristic(s): None Integumentary Issue Intervention: Visualized Under Dressing Tiffanie Wound Tissue: Blanching, Erythema, Intact Tiffanie Wound Swelling: None Wound Bed Color: Red Site Odor: None Site Measurement - Head-to-Toe Length X Width X Depth (cm): [id number] Pressure Injury Stage: Stage 1 Pressure Injury Present on Admit: Yes Skin Integrity Problem Comment: Small area of non-blanching erythema to the L of patient's coccyx, consistent in appearance with a stage I pressure injury. Tiffanie-wound skin is presently intact, w/ some satellite areas of blanching erythema. Patient currently on an Accu-max mattress w/ pump, and orders written for turns q 2 w/ continuous off-loading of sacrum and coccyx. Protective sacral dressing in place, turned upside down to adequately cover injury. Bilateral Heel Dressing Type: Allevyn Life (placed by dowel pointer) Dressing Description: Clean/Dry Exudate Amount: None Exudate Characteristic(s): None Integumentary Issue Intervention: Visualized Under Dressing Tiffanie Wound Tissue: Blanching, Thin, Dry Tiffanie Wound Swelling: None Skin Integrity Problem Comment: Request to assess bilateral heels for potential pressure injuries. Upon assessment, skin on both heels noted to be blanching and intact. There is some soft, boggy tissue over both heels, and skin throughout both lower extremities is xerotic. No need for protective dressings, order to float heels and apply lotion BID to protect skin. Report given to dowel pointer Shabana.
[2016-10-24] MEDS: NS 1,000 ML IV SCH (09:31)
[2016-10-24] MEDS: ENOXAPARIN 40 MG/0.4 ML SYR SC SCH ×2 (09:31→09:38)
[2016-10-24] MEDS: DOXYCYCLINE HYCLATE 100 MG CAP/TAB PO SCH ×2 (09:32→09:37)
[2016-10-24] MEDS ORDERED: morphINE 10 MG/0.5 ML UDSYR PO PRN (13:03)
[2016-10-24] MEDS ORDERED: ACETAMINOPHEN 650 MG SUPP PR PRN (13:03)
[2016-10-24] MEDS ORDERED: HALOPERIDOL LACT 5 MG/ML INJ IVP PRN (13:03)
[2016-10-24] MEDS ORDERED: LORazepam 2 MG/ML INJ IVP PRN (13:03)
[2016-10-24] MEDS ORDERED: BISACODYL 10 MG SUPP PR PRN (13:03)
[2016-10-24] MEDS ORDERED: ATROPINE 1% 5 ML OPHT.BTL SL PRN (13:03)
--- NOTE | 2016-10-24 14:11 | HOSPPROG ---
Hospitalist Progress Note Assessment/Plan: 76 y/o male presenting with weakness found to have # multi-focal pneumonia due to suspected aspiration #probable uti #metabolic encephalopathy #recent inguinal hernia repair Plan: Palliative care evaluation was done this morning. The patient and family are requesting comfort measures only. No abx No IV fluids Hospice has been consulted #pt is high risk Subjective: very weak. not answering questinos appropriately. wants to be left alone Objective: Vital Signs Temp Pulse Resp BP Pulse Ox 36.4 C 91 14 87/64 L 95 10/24/16 09:05 10/24/16 09:05 10/24/16 09:05 10/24/16 09:05 10/24/16 09:05 Laboratory Results 10/24/16 05:40 10/24/16 05:00 10/23/16 10/24/16 10/25/16 05:59 05:59 05:59 Intake Total 800 Balance 800 PT 15.1 SEC (12.0-15.0) H 10/23/16 20:00 INR 1.19 (0.83-1.16) H 10/23/16 20:00 ct chest reviewed showing Impressions 1. Limited visualization of pulmonary arteries, with no visible pulmonary embolus. 2. Patchy multifocal consolidation suggesting pneumonia. 3. Extensive mucous plugging, most prominent in the right lower lobe, which could be related to aspiration, with prominent right lower lobe atelectasis. Follow- up CT is recommended in three months to document resolution. 4. Large hiatal hernia. 5. Hypertrophic left 1st rib change accounting for a pseudonodule on plain film. 6. Additional findings, as above. - Physical Exam Constitutional: chronically ill appearing, uncomfortable Eyes: PERRL, anicteric sclera, EOMI Cardiovascular: regular rate and rhythym, no murmur, rub, or gallop, No edema Respiratory: no respiratory distress, no rales or rhonchi, clear to auscultation , rhonchi Gastrointestinal: normoactive bowel sounds, soft, non-tender abdomen, no palpable masses, No guarding, No rebound ICD10 Worksheet Patient Problems: Problems Problem Status Diagnosed Dehydration Acute Dementia Acute Hernia Acute Tachycardia Acute
--- NOTE | 2016-10-24 15:47 | PDPCPN ---
Palliative Care Progress Note Assessment/Plan: Referring provider: Dr Griffin Reason for consult: Complex medical decision making Symptom control HPI: David Pérez (Wick) is a 76 yo male with PMH dementia and recent right inguinal hernia repair admitted to the hospital with increased confusion and inability to care for himself at home. Found to be septic likely from asp PNA with leukocytosis and ct chest with PNA and RLL mucous plugging. Palliative care consulted for complex medical decision making. Met with nieces and nephews this AM. Discussed current medical condition with likely asp PNA and possible UTI causing acute decline. Per family Boaz had been very independent over the summer with memory issues at baseline. Per family he was dx with dementia December 2014 and have noticed since surgery a significant decline in his cognition. They state he has been more socially isolated over the past couple of years and have stated his appetite has really declined since summer. They feel independence is what Boaz values and matters most to him. They state Boaz would not want any caregivers in his home and realize he is not safe alone. Discussed goals of care in which the family agreed Boaz would not want any life prolonging measures as he is unlikely to return back to where he was in the summer. They are interested in hospice care to focus only on comfort measures. Assessment: Physical: - Pain: general body pain -roxanol 5-10mg PO Q2hr PRN - tylenol TN PRN - constipation - dulcolax supp PRN Emotional/psychological: Confusion: acute on chronic: haldol PRN for agitation Advanced Care Planning: Is patient decisional?: No Code Status: DNR/DNI POA: nephjesus Melendez is MDPOA. Plan: [facility] hospice evaluation for [facility] or LTC with hospice. Comfort care only. Subjective: leave me alone Objective: Social History: Never , no children. Has 4 nieces and nephews very involved. Lives alone at home. Medication list reviewed ROS: General: fatigue, weakness, weight loss ENT: negative Resp: dyspnea, cough GI: poor appetite : negative MS: general pain Skin: negative Neuro: negative Psych: confusion Functional assessment: PPS: 30% Functional status: dependent on ADLs, IADLs Vital Signs Temp Pulse Resp BP Pulse Ox 36.4 C 91 14 87/64 L 95 10/24/16 09:05 10/24/16 09:05 10/24/16 09:05 10/24/16 09:05 10/24/16 09:05 Laboratory Results 10/24/16 05:40 10/24/16 05:00 10/23/16 10/24/16 10/25/16 05:59 05:59 05:59 Intake Total 800 Balance 800 PT 15.1 SEC (12.0-15.0) H 10/23/16 20:00 INR 1.19 (0.83-1.16) H 10/23/16 20:00 Physical Exam - Physical Exam General Appearance: alert, no apparent distress Respiratory: decreased breath sounds, No respiratory distress, No accessory muscle use Skin: normal color, warm/dry Extremities: No pedal edema Neuro/Psych: alert, disoriented to time ICD10 Worksheet Patient Problems: Problems Problem Status Diagnosed Dehydration Acute Dementia Acute Hernia Acute Palliative care encounter Acute Tachycardia Acute - ICD10 Problem Qualifiers (1) Palliative care encounter
[2016-10-24 21:11] VITALS: TEMP 97.7
[2016-10-25 08:07] VITALS: BP 92/50; PULSE 112; RESP 18; O2SAT 92
--- NOTE | 2016-10-25 11:14 | PDDCSUM ---
Discharge Summary Discharge Summary: DISCHARGE SUMMARY NOTE DISCHARGE DIAGNOSES: -acute sepsis -pneumonia, community-acquired -suspected urinary tract infection -acute metabolic encephalopathy -stage I coccygeal pressure injury of the skin -advanced dementia Diabetes mellitus CONSULTANTS: Palliative care consultation HOSPITAL COURSE SUMMARY: This patient with advanced dementia presented with pneumonia and sepsis, with worsening neurologic function due to acute encephalopathy. He was started on initial therapy here. However with further conversation with the patient's family their choice was to provide comfort measures only and not to not treat his infection. Antibiotics were stopped palliative consultations were made. After these consultations the family has chosen to take the patient to inpatient hospice care center at [facility]. Patient was kept comfortable during his hospital stay here with standard measures. He is unable to at this time provide symptomatic assessment due to inability to communicate. MEDICATION CHANGES: At this time the only medicines ordered are for pain, anxiety, and other symptomatic relief measures. FOLLOW-UP PLAN: He will be transferred later today to the inpatient hospice care center at the [facility]. Greater than 35 minutes bedside and care coordination time today
--- NOTE | 2016-10-25 11:16 | PDIAF ---
- Diagnosis Diagnosis: pneumonia, sepsis, dementia Code Status: Do Not Resuscitate - Medication Management Discharge Medications: Medications to Continue on Transfer Fluticasone Nasal [Flonase Nasal [place]] 2 sprays EACHNARE DAILY PRN 11/06/11 [ Last Taken 09/26/16 09:00] Acetaminophen [Tylenol 325mg (*)] 325 - 650 mg PO Q4HRS PRN #0 tab 09/29/16 [ Last Taken Unknown] Atropine 1% 2 drops SL Q30M PRN #0 opht.btl 10/25/16 [Last Taken Unknown] Ondansetron Odt [Zofran Odt 4 mg (*)] 4 mg PO Q4 #1 tab 10/25/16 [Last Taken Unknown] morphINE [Roxanol 10 mg/0.5 ml oral soln (*)] 5 - 10 mg PO Q2HRS PRN #0 udsyr [Last Taken Unknown] oxyCODONE IR [Oxycodone Ir (*)] 5 - 10 mg PO Q4 PRN #0 tab 10/25/16 [Last Taken Unknown] Discharge Medications: Refer to the Discharge Home Medication list for PRN reason. - Orders Services needed: Registered Nurse, Certified Linen Sorter, Master County Surveyor Diet Recommendation: no restrictions on diet Diet Texture: Regular Texture Diet Wound Care Instructions: has a stage 1 coccygeal erythema, preventive measures for that Activity/Weight Bearing Restrictions: as tolerated - Follow Up Care Current Providers and Referrals: Patient,NotPresent [Unknown] - As per Instructions
== END 2016-10-25 12:01 | disposition hospice, home (50) | DRG 871 ==
LOC: EDBD → EDUNIT# → F1N 17:08 → OBSVTOIN 17:59
PROVIDERS: ADMIT Internal Medicine; ATTEND Internal Medicine
DX: A41.9 Sepsis, unspecified organism (principal); J69.0 Pneumonitis due to inhalation of food and vomit; N39.0 Urinary tract infection, site not specified; G93.41 Metabolic encephalopathy; R62.7 Adult failure to thrive; L89.151 Pressure ulcer of sacral region, stage 1; F03.90 Unspecified dementia, unspecified severity, without behavioral disturbance, psychotic disturbance, mood disturbance, and anxiety; E11.9 Type 2 diabetes mellitus without complications; K44.9 Diaphragmatic hernia without obstruction or gangrene; Z66 Do not resuscitate; Z51.5 Encounter for palliative care; Z98.890 Other specified postprocedural states
CPT/HCPCS: J0696; J1650; J1885; J2543; Q9967